=== PATIENT | male | born 1990 | race Two or more races ===

== ENCOUNTER 2025-03-31 01:04 | Emergency (ER) | payer MEDICAID, SELFPAY ==
--- NOTE | 2025-03-31 | XR_ITS ---
MRI abdomen, without contrast. MRCP Date and time of exam: March 31, 2025 1018 hours INDICATIONS: Epigastric pain beginning 2 days ago, gallstones, borderline gallbladder wall thickening on Doppler sonogram March 31, 2025 Technique: Multiple axial and coronal images of the abdomen have been obtained with the Siemens 1.5T MRI scanner. Images obtained included T1 weighted transverse images, T2-weighted transverse images, T2-weighted transverse images fat-suppressed, T2 weighted haste fat suppressed transverse images, T1 weighted images, in and out of phase images, T2-weighted coronal images, breath hold, T2 weighted haze coronal images as well as T2 weighted coronal thick slab images, MRCP. Findings: No focal liver lesions Gallstones Minimal thickening of the gallbladder wall No common hepatic or common bile duct stones Pancreatic duct is not dilated No pancreatic edema Spleen is not enlarged Left upper lobe renal mass, 7.4 x 7.2 cm IMPRESSION: Cholelithiasis, no findings diagnostic for cholecystitis No common hepatic or common bile ducts 7.4 cm left renal mass, likely renal cell carcinoma, recommend MRI abdomen kidneys follow-up pre and postcontrast
[2025-03-31 01:05] VITALS: BMI 38.5
[2025-03-31 01:45] VITALS: BP 140/101; PULSE 78; RESP 20; TEMP 36.6; O2SAT 99
--- NOTE | 2025-03-31 01:50 | XR_ITS ---
Examination: Abdomen sonogram, Limited Date and time of exam: March 31, 2025 0232 hours INDICATIONS: Right upper abdominal pain and vomiting today. Technique: Real-time gomez scale transabdominal sonographic images of the upper abdomen obtained. Findings: Multiple gallstones. Gallbladder wall 0.41 cm, no edema Common bile duct 0.3 cm Pancreatic head 3.8 cm Liver 19.6 cm fatty infiltration lobular contour Normal hepatopedal portal venous flow Patent IVC IMPRESSION: Cholelithiasis, thickened gallbladder wall, consider MRCP follow-up, which also can assess the enlarged pancreatic head Moderate hepatomegaly, suspicious for primary hepatocellular disease
[2025-03-31 02:15] LABS: Basophils # (Auto) 0.0 Thou/mm3 (0.0-0.2); Basophils % (Auto) 0 % (0-2.5); Eosinophils # (Auto) 0.2 Thou/mm3 (0.0-0.5); Eosinophils % (Auto) 1 % (0-10); Hematocrit 47.2 % (41.0-53.0); Hemoglobin 14.9 g/dL (13.5-16.0); Immature Granulocytes Auto 0.04 Thou/mm3 (0.00-0.00); Lymphocytes # (Auto) 3.3 Thou/mm3 (1.0-4.8); Lymphocytes % (Auto) 27 % (10-50); Mean Corpuscular HGB Conc 31.6 g/dl (31.0-37.0); Mean Corpuscular Hemoglobin 27.7 pg (25.0-35.0); Mean Corpuscular Volume 88 fL (80-100); Monocytes # (Auto) 0.8 Thou/mm3 (0.0-0.8); Monocytes % (Auto) 7 % (0-12); Neutrophils # (Auto) 7.8 Thou/mm3 (1.8-7.7); Neutrophils % (Auto) 65 % (37-80); Nucleated Red Blood Cell # 0.00 Thou/mm3 (0.00-0.00); Nucleated Red Blood Cell % 0 /100 WBC (0); Platelet Count 186 Thou/mm3 (140-440); RDW Standard Deviation 44.5 fL (35.1-43.9); Red Blood Count 5.37 Miln/mm3 (4.50-5.90); White Blood Count 12.1 Thou/mm3 (3.8-10.6)
[2025-03-31 02:34] LABS: Alanine Aminotransferase 156 U/L (10-49); Albumin, Serum 4.4 gm/dL (3.5-5.0); Albumin/Globulin Ratio 1.6 (1.2-2.2); Alkaline Phosphatase 248 U/L (46-116); Amylase 73 U/L (30-118); Anion Gap 12 (7-16); Aspartate Amino Transferase 314 U/L (0-34); BUN/Creatinine Ratio 6 Ratio (12-20); Bilirubin,Total 1.9 mg/dL (0.3-1.2); Blood Urea Nitrogen 7 mg/dL (9-23); Calcium 9.8 mg/dL (8.3-10.6); Calcium (Corrected) 9.8 mg/dL (8.5-10.1); Carbon Dioxide 23.5 mMol/L (20.0-31.0); Chloride 106 mMol/L (98-107); Creatinine (Component) 1.1 mg/dL (0.6-1.3); Estimated Creatinine Clearance 137.5 mL/min (>60); Globulin 2.7 gm/dL (2.3-3.5); Glucose 100 mg/dL (74-106); Lipase 34 U/L (12-53); Osmolality,Calculated 279 (275-295); Potassium 4.1 mMol/L (3.4-5.1); Sodium 141 mMol/L (136-145); Total Protein 7.1 gm/dL (5.7-8.2); eGFR > 60 See Note
[2025-03-31 03:28] LABS: Collection Type, Urine Clean Catch; Squamous Epithelial Cell,Urine 0 /hpf (0-5)
--- NOTE | 2025-03-31 03:41 | PRELIM_ITS ---
Right upper quadrant abdominal ultrasound with Doppler and wave Doppler spectral analysis. March 31, 2025 0232 hours Clinical history: Gallstone. Technique: Grayscale and color flow images of the right upper quadrant are provided. Hepatic and portal veins were also imaged with color flow images. Comparison: None. Findings: The counseling center director worksheet is not available at the time of this report. Gar sign is not available at the time of this report. The liver demonstrates increased echogenicity. Hepatomegaly. No intrahepatic biliary ductal dilatation. Gallbladder wall thickening. No gallbladder calculus or pericholecystic fluid is demonstrated. The common bile duct is normal in caliber at 2.6 mm. The pancreas is unremarkable to the extent visu alized. The imaged portions of the right kidney are within normal limits. The portal vein is patent with hepatopetal flow and normal with Doppler spectral analysis. Impression: Gallbladder wall thickening suspicious for acute cholecystitis. Consider correlation with HIDA scan. Hepatomegaly associated with liver steatosis, suspicious for steatohepatitis. Report Electronically Signed By: Brandin Whitman 03/31/2025 3:40:45 AM [EST]
[2025-03-31 04:07] LABS: Amorphous Crystals,Urine Present (Absent); Bilirubin,Urine Negative (Negative); Blood,Urine Negative (Negative); Clarity,Urine Clear (Clear/Hazy); Color,Urine Yellow (Lt Yel-Yel); Glucose, Urine Negative (Negative); Ketones,Urine Negative (Negative); Leukocyte Esterase,Urine Negative (Negative); Nitrite,Urine Negative (Negative); PH,Urine 6.0 (5.0-7.0); Protein,Urine Negative (Neg - Trace); RBC,Urine < 1 /hpf (0-3); Specific Gravity,Urine 1.030 (1.001-1.035); Urobilinogen,Urine 6.0 mg/dL (0.0-1.0); WBC,Urine 1 /hpf (0-5)
--- NOTE | 2025-03-31 04:15 | PD.EDRME ---
Rapid Medical Screening Exam RME Arrival date/time: 03/31/25 01:04 This is a case of 34-year-old male with history of gallstone came in in the emergency room due to abdominal pain mostly on the epigastric area and right upper quadrant for 2 days associated with nausea and vomiting persistence of the symptoms this patient decided to sought consult here in the emergency room Chief Complaint: Abdominal Pain Time Seen by Provider: 03/31/25 01:08 Vital signs: Vital Signs Temperature 97.9 F 03/31/25 01:45 Pulse Rate 78 03/31/25 01:45 Respiratory Rate 20 03/31/25 01:45 Blood Pressure 140/101 H 03/31/25 01:45 Pulse Oximetry (%) 99 03/31/25 01:45 Oxygen Delivery Method Room Air 03/31/25 01:45
[2025-03-31 04:34] VITALS: BP 145/103; PULSE 78; RESP 16; TEMP 36.9; O2SAT 97
[2025-03-31] MEDS: ONDANSETRON INJ 2 MG/ML INJ 2 ML 4 MG IVP (04:48)
[2025-03-31] MEDS: MORPHINE SULF INJ 10 MG/ML VIAL 6 MG IVP (04:48)
[2025-03-31] MEDS: SODIUM CHLORIDE 0.9% 1000 ML 1,000 ML 999 ML IV (04:48)
[2025-03-31] MEDS: KETOROLAC INJ 30 MG/ML VIAL IVP (04:48)
--- NOTE | 2025-03-31 05:04 | EDNOTE_ITS ---
ED Abdominal Pain RME/HPI General Chief Complaint: Abdominal Pain Stated complaint: RUQ ABD PAIN HX OF GALLSTONES Time seen by provider: 03/31/25 01:08 Arrival date/time: 03/31/25 01:04 RME / HPI RME / HPI narrative: 03/31/25 01:04 This is a case of 34-year-old male with history of gallstone came in in the emergency room due to abdominal pain mostly on the epigastric area and right upper quadrant for 2 days associated with nausea and vomiting persistence of the symptoms this patient decided to sought consult here in the emergency room See MDM for HPI documentation. Related Data Home Medications ?Medication ?Instructions ?Recorded ?Confirmed No Known Home Medications 12/28/2112/12 Allergies Allergy/AdvReac Type Severity Reaction Status Date / Time No Known Allergies Allergy Verified 03/31/25 01:07 Review of Systems Review of Systems Systems Reviewed: All systems reviewed, normal except as documented Past Medical History Past Medical History NEUROLOGIC: Positive Migraine CARDIAC: Positive Hypercholesterolemia and Hypertension; Negative Cardiac Disorders or Congestive Heart Failure RESPIRATORY: Negative Respiratory Disorders or Chronic Obstructive Pulmonary Disease (COPD) GASTROINTESTINAL: Positive Gall Bladder Disease GENITOURINARY: Negative Renal Disease ENT: Positive History of ENT Problems (WEARS GLASSES) ENDOCRINE: Negative Diabetes Mellitus Type 1 or Diabetes Mellitus Type 2 PSYCHO/SOCIAL: Positive Attention Deficit Hyperactivity Disorder Surgical History SURGICAL: Positive Gastric Bypass Surgery Social History SMOKING STATUS: Never smoker ED Exam Narrative Physical exam: See MDM for physical exam findings. Course Quality Measures none Orders Category Date Time Status Insert IV NOW Care 03/31/25 04:23 Active MRI Screening NOW Care 03/31/25 04:14 Active MR MRCP Stat Exams 03/31/25 Ordered US gall bladder Stat Exams 03/31/25 01:50 Taken Amylase Stat Lab 03/31/25 02:05 Completed CBC Stat Lab 03/31/25 02:05 Completed Comprehensive Metabolic Panel Stat Lab 03/31/25 02:05 Completed Lipase Stat Lab 03/31/25 02:05 Completed Magnesium Stat Lab 03/31/25 05:05 Ordered PT [Prothrombin Time with INR] Stat Lab 03/31/25 05:05 Ordered PTT [Partial Thromboplastin Time] Stat Lab 03/31/25 05:05 Ordered Urinalysis Stat Lab 03/31/25 02:31 Completed Ketorolac Inj [Toradol Inj] Med 03/31/25 04:37 Discontinued 30 mg IVP X1 ONE Morphine Inj Med 03/31/25 04:37 Discontinued 6 mg IVP X1 ONE Ondansetron Inj [Zofran Inj] Med 03/31/25 04:37 Discontinued 4 mg IVP X1 ONE Piper/Tazo 3.375 gm Premix [Zosyn] Med 03/31/25 05:04 Active 3.375 gm in 50 ml IV X1 Sodium Chloride 0.9% 1000 ml [Ns] 1,000 ml Med 03/31/25 04:37 Active IV 999 mls/hr Vital Signs Vital signs: Vital Signs Temperature 97.9 F 03/31/25 01:45 Pulse Rate 78 03/31/25 01:45 Respiratory Rate 20 03/31/25 01:45 Blood Pressure 140/101 H 03/31/25 01:45 Pulse Oximetry (%) 99 03/31/25 01:45 Oxygen Delivery Method Room Air 03/31/25 01:45 Abdominal Pain MDM MDM Narrative MDM Narrative:: This section includes all my notes and documentations, including HPI, PE, and ED course. Trevor Lozano MD HPI: 34yo male here with epigastric and RUQ pain for the last couple days. With nausea and vomiting. No other complaints reported. ROS: All negative except as documented in HPI. Physical Exam: General: Alert and oriented. Appears uncomfortable. Eyes: Conjunctivae and lids clear. ENT: No nasal congestion. Neck: Supple. Heart: RRR. Lungs: No respiratory distress. Good air movement. No rhonchi, wheezing, rales. Abdomen: Soft with RUQ tenderness. Normal bowel sounds. No distension. No rebound or guarding. Back: No CVA tenderness. Skin: Warm and dry. Neuro: Alert and oriented X 3. I reviewed all diagnostic test results. My review of the US gallbladder report is cholecystitis. Blood tests remarkable for WBC 12.1, Total Bilirubin 1.9, AST 314, ALT 156, Alkaline Phosphatase 248. UA unremarkable. At this point, diagnoses include cholecystitis. Treatment here included Morphine, Toradol, Zofran, IV fluid. MRCP ordered. At 6 AM on 03/31/25, care of the patient was transferred to Dr. HOPKINS. Trevor Lozano MD Patient data External records reviewed:: [facility] previous records (Per chart review, patient has no relevant previous ED visits.) Clinical information provided by:: patient Social determinants that could affect healthcare access:: none Patient has the following chronic illnesses:: HTN, HLD How is presenting disease/condition affected by chronic disease/condition?: uneffected by Evaluation data The following diagnostics were reviewed and interpreted by me:: lab results and radiology exam(s) Lab and/or radiology exams considered but not ordered:: none Interpretation Summary: I reviewed all diagnostic test results. My review of the US gallbladder report is gallbladder wall thickening suspicious for acute cholecystitis. Blood tests remarkable for WBC 12.1, Total Bilirubin 1.9, AST 314, ALT 156, Alkaline Phosphatase 248. UA unremarkable. Medications / Prescriptions Medications or Prescriptions considered but not ordered:: none Medication administrations:: Medication Administration History Sodium Chloride (Ns) 1,000 mls @ 999 mls/hr IV .Q1H1M ONE Stop: 03/31/25 05:37 Last Admin: 03/31/25 04:48 Dose: 999 mls/hr Documented By: EE Piperacillin/Tazobactam/Dextrose (Zosyn) 3.375 gm in 50 mls @ 100 mls/hr IV X1 ONE Stop: 03/31/25 05:33 Discontinued Medications Ketorolac Tromethamine (Ketorolac Inj 30 Mg/Ml Vial) 30 mg IVP X1 ONE Stop: 03/31/25 04:38 Last Admin: 03/31/25 04:48 Dose: 30 mg Documented By: EE Morphine Sulfate (Morphine Sulf Inj 10 Mg/Ml Vial) 6 mg IVP X1 ONE Stop: 03/31/25 04:38 Last Admin: 03/31/25 04:48 Dose: 6 mg Documented By: EE Ondansetron HCl (Ondansetron Inj 2 Mg/Ml Inj 2 Ml) 4 mg IVP X1 ONE; Protocol Stop: 03/31/25 04:38 Last Admin: 03/31/25 04:48 Dose: 4 mg Documented By: EE Morphine, Toradol, Zofran, IV fluid Consultations Consultation(s) initiated? (list below): No Diagnosis Differential diagnosis abdominal pain: acute appendicitis, calculus of kidney, constipation, diverticulitis, pancreatitis, small bowel obstruction and other (Biliary colic) Most likely diagnosis given after review of the tests above:: Biliary colic Admission Indicated Admission indicated?: not indicated Explain why admission is indicated or not indicated:: MRCP pending. Admission Request Was there a request for admission?: No Disposition Plan Disposition Plan: other (specify) (Signed out to Dr. Hopkins at 6 AM.) Discharge Plan Prescriptions/Referrals Prescriptions/Med Rec: No Action No Known Home Medications Referrals: No Primary/Family,Physician [Primary Care Provider] - In 1 week Problem List Clinical Impression: Cholecystitis Patient/Caregiver Discharge Instructions Print Language: Turkish
[2025-03-31] MEDS: PIPER/TAZO 3.375 GM PREMIX 3.375 GM/50 ML BAG IV (05:53)
--- NOTE | 2025-03-31 07:05 | EDNOTE_ITS ---
Emergency Room Addendum Addendum Narrative: 0600: Care assumed from Dr. Lozano, the previous shift emergency physician. Past medical, surgical, social and family history reviewed. Vitals and home medications reviewed. I will assume the care of the patient at this time, pending MRCP and final disposition. Please refer to the emergency department record for history and examination from initial visit.?The following addendum documentation note is intended to reflect any pending information, findings, or radiology results not included in the patient?s initial chart. Patient remains clinically stable throughout the emergency department visit. We reviewed all the results, analysis, and treatment plans. Patient is amenable to discharge. Strict return precautions were outlined. RADIOLOGY Ordering Physician: Domenic Zee Date of Service: 03/31/25 Procedure(s): MR MRCP Accession Number(s): [id number] cc: Eugene Edmondson MD; NO PRIMARY/FAMILY,PHYSICIAN; Domenic Zee~ MRI abdomen, without contrast. MRCP Date and time of exam: March 31, 2025 1018 hours INDICATIONS: Epigastric pain beginning 2 days ago, gallstones, borderline gallbladder wall thickening on Doppler sonogram March 31, 2025 Technique: Multiple axial and coronal images of the abdomen have been obtained with the Siemens 1.5T MRI scanner. Images obtained included T1 weighted transverse images, T2-weighted transverse images, T2-weighted transverse images fat-suppressed, T2 weighted haste fat suppressed transverse images, T1 weighted images, in and out of phase images, T2-weighted coronal images, breath hold, T2 weighted haze coronal images as well as T2 weighted coronal thick slab images, MRCP. Findings: No focal liver lesions Gallstones Minimal thickening of the gallbladder wall No common hepatic or common bile duct stones Pancreatic duct is not dilated No pancreatic edema Spleen is not enlarged Left upper lobe renal mass, 7.4 x 7.2 cm IMPRESSION: Cholelithiasis, no findings diagnostic for cholecystitis No common hepatic or common bile ducts 7.4 cm left renal mass, likely renal cell carcinoma, recommend MRI abdomen kidneys follow-up pre and postcontrast Dictated By: Eugene Edmondson MD Signed By: <Electronically signed by Eugene Edmondson MD in [place]>03/31/25 1110
[2025-03-31 07:10] LABS: Magnesium 1.8 mg/dL (1.6-2.6)
[2025-03-31 08:44] LABS: INR 1.0 (0.9-1.3); Partial Thromboplastin Time 29.0 Seconds (22.0-36.0); Prothrombin Time 11.3 Seconds (9.0-12.2)
[2025-03-31 10:02] VITALS: BP 132/95; PULSE 72; RESP 18; TEMP 36.6; O2SAT 99
--- NOTE | 2025-03-31 10:10 | PC.NURSE ---
PT TAKEN TO MRI.
[2025-03-31 11:41] LABS: Bilirubin,Direct 0.6 mg/dL (0.0-0.3)
== END 2025-03-31 12:05 | disposition home or self-care (01) ==
PROVIDERS: Emergency Medicine; Nurse Practitioner Family; Emergency Provider Emergency Medicine
DX: K81.9 Cholecystitis, unspecified (principal)
CPT/HCPCS: 36415; 74181; 76705; 80053; 80076; 81001; 82150; 83690; 83735; 85025; 85610; 85730; 96361; 96365; 96375; 99283; J1885; J2270; J2405; J2543; J7030

== ENCOUNTER → 2025-05-16 | Outpatient (CLI) | payer MEDICAID, SELFPAY ==
--- NOTE | 2025-05-16 08:00 | XR_ITS ---
Examination: MRI abdomen with intravenous contrast. MRI abdomen without intravenous contrast. Date and time of exam: May 16, 2025, 0851 hours, comparison March 31, 2025 INDICATIONS: Diagnosis malignant neoplasm left kidney except renal pelvis, 7.4 cm left renal mass on MRI study March 31, 2025. Technique: Multiple axial, sagittal and coronal sections of the abdomen obtained. Transverse images, TR 6020, TE 107. T1 weighted transverse images, TR 582, TE 9.5. T2-weighted sagittal images, TR 4000, TE 105. T2-weighted sagittal images, TR 4000, TE 5. Coronal images, TR 4210, TE 107. Axial and coronal images are obtained post 20 cc intravenous injection, gadolinium. Findings: No focal liver lesions or intrahepatic biliary tract dilatation Absent gallbladder No common hepatic or common bile duct stones Spleen not enlarged No pancreatic mass Upper pole left renal mass, 6.6 x 7.4 cm No tumor thrombus in the renal vein or inferior vena cava noted Aorta normal size No abdominal lymphadenopathy No ascites IMPRESSION: 6.6 x 7.4 cm upper pole left renal mass No abdominal lymphadenopathy No tumor thrombus in the renal vein or inferior vena cava
== END | disposition home or self-care (01) ==
DX: N28.89 Other specified disorders of kidney and ureter (principal); C64.2 Malignant neoplasm of left kidney, except renal pelvis
CPT/HCPCS: 74183; A9577